=== PATIENT | female | born 1985 | race Caucasian/White ===

== ENCOUNTER 2024-11-28 08:25 | Outpatient (CLI) | payer BC | END 2024-11-28 08:26 | disposition home or self-care (01) | LOC: CSHWCC 08:25 | PROVIDERS: ATTEND Nurse Practitioner Family | DX: N30.41 Irradiation cystitis with hematuria (principal); N39.46 Mixed incontinence; L59.8 Other specified disorders of the skin and subcutaneous tissue related to radiation; R30.0 Dysuria | CPT/HCPCS: G0277 ==

== ENCOUNTER 2024-12-05 08:48 | Outpatient (CLI) | payer BC | END 2024-12-05 08:49 | disposition home or self-care (01) | LOC: CSHWCC 08:48 | PROVIDERS: ATTEND Nurse Practitioner Family | DX: N30.41 Irradiation cystitis with hematuria (principal); N39.46 Mixed incontinence; L59.8 Other specified disorders of the skin and subcutaneous tissue related to radiation; R30.0 Dysuria | CPT/HCPCS: G0277 ==

== ENCOUNTER 2024-12-12 08:00 | Outpatient (CLI) | payer BC | END 2024-12-12 08:01 | disposition home or self-care (01) | LOC: CSHWCC 08:00 | PROVIDERS: ATTEND Nurse Practitioner Family | DX: N30.41 Irradiation cystitis with hematuria (principal); N39.46 Mixed incontinence; L59.8 Other specified disorders of the skin and subcutaneous tissue related to radiation; R30.0 Dysuria | CPT/HCPCS: G0277 ==